=== PATIENT | male | born 1990 | race Caucasian/White ===

== ENCOUNTER 2017-08-09 22:25 | Emergency (ER) | payer SELFPAY ==
[2017-08-09 22:39] VITALS: TEMP 97.6
[2017-08-09] MEDS ORDERED: Sodium Chloride 0.9% 1,000 ML IV ONE (22:50)
[2017-08-09] MEDS ORDERED: DiphenhydrAMINE 50 mg/ml Inj IVP STA (22:50)
[2017-08-09] MEDS ORDERED: DiphenhydrAMINE 50 mg/ml Inj ONE (22:55)
[2017-08-09] MEDS ORDERED: Sodium Chloride 0.9% 1,000 ML ONE (22:55)
[2017-08-09 23:40] VITALS: BP 148/82; PULSE 99; RESP 18; O2SAT 100
--- NOTE | 2017-08-10 00:06 | C.PDOC ---
Time Seen by Provider: 08/09/17 22:43 Chief Complaint (Nursing): Allergic Reaction History Per: Patient, Family Onset/Duration Of Symptoms: Days (1) Current Symptoms Are (Timing): Worse Possible Cause: Unknown Associated Symptoms: Skin Rash, Itching Home/EMS Treatment: Benadryl Severity: Moderate Additional History Per: Prior Records Past Medical History Reviewed: Historical Data, Nursing Documentation, Vital Signs Vital Signs: Last Vital Signs Temp 97.6 F 08/09/17 22:34 Pulse 99 H 08/09/17 23:39 Resp 18 08/09/17 23:39 BP 148/82 08/09/17 23:39 Pulse Ox 100 08/09/17 23:39 - Medical History PMH: No Chronic Diseases Family History: States: Unknown Family Hx - Social History Hx Alcohol Use: Yes Hx Substance Use: No - Immunization History Hx Tetanus Toxoid Vaccination: No Hx Influenza Vaccination: Yes Hx Pneumococcal Vaccination: Yes Review Of Systems Except As Marked, All Systems Reviewed And Found Negative. Constitutional: Negative for: Fever, Weakness ENT: Negative for: Mouth Pain, Mouth Swelling, Throat Pain, Throat Swelling Respiratory: Negative for: Cough, Shortness of Breath Gastrointestinal: Negative for: Vomiting, Abdominal Pain Musculoskeletal: Negative for: Neck Pain Skin: Positive for: Rash Neurological: Negative for: Weakness, Numbness, Change in Speech Physical Exam - Physical Exam Appears: Non-toxic, No Acute Distress Skin: Warm, Dry, Rash (Diffuse urticaria) Head: Atraumatic, Normacephalic Eye(s): bilateral: Normal Inspection, PERRL, EOMI Oral Mucosa: Moist, No Drooling, No Trismus Tongue: Normal Appearing Lips: Normal Appearing Throat: Normal Neck: Normal ROM, Supple Cardiovascular: Rhythm Regular Respiratory: Normal Breath Sounds, No Accessory Muscle Use, No Stridor, No Wheezing Gastrointestinal/Abdominal: Soft, No Tenderness Extremity: Normal ROM, No Pedal Edema Neurological/Psych: Oriented x3, Normal Speech, Normal Motor, Normal Sensation ED Course And Treatment O2 Sat by Pulse Oximetry: 100 Pulse Ox Interpretation: Normal Progress - Interventions Interventions:: Observation, Intravenous fluid - Medications Administered Intravenous: Antihistamine (H-1), Corticosteroid, H-2 bernardino - Data Reviewed Data Reviewed: Old records - Patient Status Patient status: Mostly improved - Continuity of Care Discussed patient case with:: Patient, ED Nurse - Patient Plan Patient Plan: Discharge, F/U with PCP Disposition Counseled Patient/Family Regarding: Diagnosis, Need For Followup, Rx Given - Disposition Referrals: [facility] [Outside] Disposition: HOME/ ROUTINE Disposition Time: 00:07 Condition: IMPROVED Additional Instructions: Follow up with your doctor or in the clinic. Return to the ER if you develop trouble breathing or swallowing, throat swelling, worsening of symptoms or if you have any other concerns. Prescriptions: DiphenhydrAMINE [Benadryl] 25 mg PO Q4 PRN #30 cap PRN Reason: Allergy Symptoms Famotidine [Pepcid] 20 mg PO BID #30 tab predniSONE [predniSONE Tab] 2 tab PO DAILY #8 tab Instructions: General Allergic Reaction (ED) Forms: [facility] (Kazakh) - Clinical Impression Clinical Impression: Allergic urticaria
== END 2017-08-10 00:29 | disposition home or self-care (01) ==
LOC: C.ER 22:25
DX: L50.0 Allergic urticaria (principal)
CPT/HCPCS: 96361; 96374; 96375; 99285; J1200; J2930; J7040